=== PATIENT | male | born 1975 | race Caucasian/White ===

== ENCOUNTER 2021-07-10 04:08 | Emergency (ER) | payer OTHER ==
[~2021-07-10] VITALS: Ht 185.4 cm; Wt 102.5 kg
[2021-07-10] MEDS ORDERED: IV RINGERS SOLUTION,LACTATED 1,000 ML IV ONE (05:00)
[2021-07-10] MEDS ORDERED: KETOROLAC 30 MG/ML VIAL. IVP ONE (05:00)
[2021-07-10] MEDS ORDERED: ONDANSETRON PF 4 MG/2 ML VIAL. IVP ONE ×2 (05:00→05:30)
--- NOTE | 2021-07-10 05:19 | PHYS DOC ---
Past History Past Medical History: Kidney Stones Additional Past Medical Histor: Kidnet stent once. Past Surgical History: Other Additional Past Surgical Histo: right shoulder surgery. General Adult EDM: Chief Complaint: FLANK PAIN HPI: HPI: ".. I am having really bad flank pain.. It is probably another kidney stones I have had lots of kidney stones..... And had a stent before... had lithotripsy before ...this feels just like a kidney stone" Patient is a 45 year old male who presents with above hx and complaint of of left flank pain which he describes as his kidney stone pain. Patient states acute onset today. On left side radiates to his groin. No history of trauma. No specific ill contacts. No history of fever. Does have a past history of multiple stones some which required stent and one required lithotripsy. Patient states he is otherwise healthy. No recent travel. No specific ill contacts. Does have some nausea. No history immunosuppression. Follows at [place]. Has had some TDYs for . Review of Systems: Review of Systems: Constitutional: Denies fever or chills Eyes: Denies change in visual acuity HENT: Denies nasal congestion or sore throat Respiratory: Denies cough or shortness of breath Cardiovascular: Denies chest pain or edema GI: Planes of left flank abdominal pain, nausea,. Denies vomiting, bloody stools or diarrhea : Denies dysuria Musculoskeletal: Complains of left flank back pain or joint pain Integument: Denies rash Neurologic: Denies headache, focal weakness or sensory changes Endocrine: Denies polyuria or polydipsia Lymphatic: Denies swollen glands Psychiatric: Denies depression or anxiety Family History: Family History: Noncontributory to presentation Current Medications: Current Meds: Current Medications Medications (Trade) Dose Ordered Sig/Irwin Start Time Stop Time Status Last Admin Dose Admin Ketorolac Tromethamine (Toradol 30mg Vial) 30 mg 1X ONCE 07/10/21 05:00 07/10/21 05:01 DC 07/10/21 04:56 30 MG Lactated Ringer's 1,000 ml @ 1,000 mls/hr 1X ONCE 07/10/21 05:00 07/10/21 05:59 07/10/21 04:55 1,000 MLS/HR Ondansetron HCl (Zofran) 8 mg 1X ONCE 07/10/21 05:00 07/10/21 05:01 DC 07/10/21 04:58 8 MG Allergies: Allergies: Allergies Coded Allergies Type Severity Reaction Last Updated Verified No Known Drug Allergies 07/10/21 No Physical Exam: PE: Constitutional: Well developed, well nourished, in acute distress, non-toxic appearance. [] HENT: Normocephalic, atraumatic, bilateral external ears normal, oropharynx moist, no oral exudates, nose normal. [] Eyes: PERRLA, EOMI, conjunctiva normal, no discharge. [] Neck: Normal range of motion, no tenderness, supple, no stridor. [] Cardiovascular:Heart rate regular rhythm, no murmur [] Lungs & Thorax: Bilateral breath sounds clear to auscultation [] Abdomen: Bowel sounds decreased, soft, no tenderness, no masses, no pulsatile masses. Mild distention. Left flank tenderness on percussion Skin: Warm, dry, no erythema, no rash. [] Back: No tenderness, left-sided CVA tenderness. [] Extremities: No tenderness, no cyanosis, no clubbing, ROM intact, no edema. [] No psoas sign. Neurologic: Alert and oriented X 3, normal motor function, normal sensory function, no focal deficits noted. [] Psychologic: Affect anxious, judgement normal, mood normal. [] Current Patient Data: Vital Signs: Vital Signs Date Time Temp Pulse Resp B/P (MAP) Pulse Ox O2 Delivery O2 Flow Rate FiO2 07/10/21 04:23 97.8 63 22 100 Room Air EKG: EKG: [] Radiology/Procedures: Radiology/Procedures: [[address] [address] IMAGING REPORT Signed PATIENT: NEIL WHARTON NACCOUNT: [id number] : 1975 LOCATION: ER AGE: 45 SEX: M EXAM STATUS: REG ER ORD. PHYSICIAN: MEÑO LIANG MD REASON: Severe left flank pain hx kidney stones PROCEDURE: ACUTE ABDOMEN SERIES XR ABDOMEN COMP ACUTE History: Severe left flank pain and history of kidney stones. Comparison: None. Technique: Frontal chest with upright and supine radiographs of the abdomen and pelvis. Findings: Chest: Clear lungs. Normal cardiomediastinal silhouette. Bowel gas pattern: Normal. Free air: None. Abnormal calcifications: A 4 mm calcification is noted at the level of the L4-L5 disc space on the left consistent with nephroliths seen on comparison CT. Known right nephrolith is obscured by bowel gas. Bones: No acute findings. Other: None. Impression: 1. 4 mm calcification projecting at the left L4-L5 disc space consistent with ureterolith. Electronically signed by: Jacques Burnham MD (07/10/2021 6:02 AM) [facility] DICTATED AND SIGNED BY: JACQUES BURNHAM MD DATE: 07/10/21600 CC: MEÑO LIANG MD; PCP,UNKNOWN; BRUNO INGRAM DO ~ ][place] [address] IMAGING REPORT Signed PATIENT: NEIL WHARTON NACCOUNT: [id number] : 1975 LOCATION: ER AGE: 45 SEX: M EXAM STATUS: REG ER ORD. PHYSICIAN: MEÑO LIANG MD REASON: Severe left flank pain hx kidney stones PROCEDURE: CT ABDOMEN PELVIS WO CONTRAST CT ABDOMEN+PELVIS WO History: Severe left flank pain. History of kidney stones. Comparison: None. Technique: CT of the abdomen and pelvis without contrast. Findings: There is moderate left hydronephrosis and hydroureter with a 3 mm left mid to distal ureterolith. No left nephrolithiasis. Right nephrolithiasis with stone measuring up to 1 cm. No right hydronephrosis. Multiple indeterminate attenuation exophytic masses in the right kidney, largest measuring 3.3 cm diameter, 38 Hounsfield units attenuation. Dependent changes in the lung bases. Benign hepatic cyst. Large peripherally calcified 2.9 cm gallstone. No evidence of acute cholecystitis. The pancreas is unremarkable. Punctate calcifications in the spleen consistent with granulomatous disease. Normal adrenal glands. The stomach and small bowel are unremarkable. Normal appendix. The colon is unremarkable. No intra-abdominal free air or free fluid. The bladder and prostate are unremarkable. Unenhanced vasculature is within normal limits. Osseous structures and soft tissues are unremarkable. Impression: 1. Left mid to distal ureterolith measuring 3 mm causing moderate left hydronephroureter. 2. Multiple indeterminate exophytic masses in the right kidney, largest measuring 3.3 cm diameter. Findings may represent solid mass versus hemorrhagic or proteinaceous cyst. Recommend dedicated MRI or CT of the kidneys for further evaluation. 3. Nonobstructing right nephrolithiasis. 4. Cholelithiasis without evidence of acute cholecystitis. ------ Exposure: One or more of the following individualized dose reduction techniques were utilized for this examination: 1. Automated exposure control 2. Adjustment of the mA and/or kV according to patient size 3. Use of iterative reconstruction technique. Electronically signed by: Jacques Burnham MD (07/10/2021 6:01 AM) [facility] DICTATED AND SIGNED BY: JACQUES BURNHAM MD DATE: 07/10/21550 CC: MEÑO LIANG MD; PCP,UNKNOWN ~ [address] [address] IMAGING REPORT Signed PATIENT: NEIL WHARTON NACCOUNT: [id number] : 1975 LOCATION: ER AGE: 45 SEX: M EXAM STATUS: REG ER ORD. PHYSICIAN: MEÑO LIANG MD REASON: Severe left flank pain hx kidney stones PROCEDURE: CT ABDOMEN PELVIS WO CONTRAST CT ABDOMEN+PELVIS WO History: Severe left flank pain. History of kidney stones. Comparison: None. Technique: CT of the abdomen and pelvis without contrast. Findings: There is moderate left hydronephrosis and hydroureter with a 3 mm left mid to distal ureterolith. No left nephrolithiasis. Right nephrolithiasis with stone measuring up to 1 cm. No right hydronephrosis. Multiple indeterminate attenuation exophytic masses in the right kidney, largest measuring 3.3 cm diameter, 38 Hounsfield units attenuation. Dependent changes in the lung bases. Benign hepatic cyst. Large peripherally calcified 2.9 cm gallstone. No evidence of acute cholecystitis. The pancreas is unremarkable. Punctate calcifications in the spleen consistent with granulomatous disease. Normal adrenal glands. The stomach and small bowel are unremarkable. Normal appendix. The colon is unremarkable. No intra-abdominal free air or free fluid. The bladder and prostate are unremarkable. Unenhanced vasculature is within normal limits. Osseous structures and soft tissues are unremarkable. Impression: 1. Left mid to distal ureterolith measuring 3 mm causing moderate left hydronephroureter. 2. Multiple indeterminate exophytic masses in the right kidney, largest measuring 3.3 cm diameter. Findings may represent solid mass versus hemorrhagic or proteinaceous cyst. Recommend dedicated MRI or CT of the kidneys for further evaluation. 3. Nonobstructing right nephrolithiasis. 4. Cholelithiasis without evidence of acute cholecystitis. ------ Exposure: One or more of the following individualized dose reduction techniques were utilized for this examination: 1. Automated exposure control 2. Adjustment of the mA and/or kV according to patient size 3. Use of iterative reconstruction technique. Electronically signed by: Jacques Burnham MD (07/10/2021 6:01 AM) [facility] DICTATED AND SIGNED BY: JACQUES BURNHAM MD DATE: 07/10/21 0551 CC: MEÑO LIANG MD; PCP,UNKNOWN ~ Heart Score: C/O Chest Pain: N/A Risk Factors: Risk Factors: DM, Current or recent (<one month) smoker, HTN, HLP, family history of CAD, obesity. Risk Scores: Score 0 - 3: 2.5% MACE over next 6 weeks - Discharge Home Score 4 - 6: 20.3% MACE over next 6 weeks - Admit for Clinical Observation Score 7 - 10: 72.7% MACE over next 6 weeks - Early Invasive Strategies Course & Med Decision Making: Course & Med Decision Making Pertinent Labs and Imaging studies reviewed. (See chart for details) Patient save stone if passed. Patient push fluids. Patient to take Flomax 0.4 until stone passed. Take Zofran for active vomiting. Take Tylenol and ibuprofen for pain. For more pain may take Vicoprofen. Take Cipro 500 twice a day. Follow-up with primary and urology if you do not have urology consider follow-up with Dr. Giraldo. Impression: 1. Abdomen pain 2. Renal colic-distal 3 mm ureteral stone left-with hydroureter and nephrosis [] Dragon Disclaimer: Dragon Disclaimer: This electronic medical record was generated, in whole or in part, using a voice recognition dictation system. Departure Departure: Referrals: PCP,UNKNOWN (PCP) Scripts Tamsulosin Hcl (FLOMAX) 0.4 Mg Cap.er.24h 0.4 MG PO DAILY06 for renal colic, #30 CAP.SR Prov: MEÑO LIANG MD 07/10/21 Ondansetron Hcl (ONDANSETRON HCL) 4 Mg Tablet 8 MG PO QIDPRN PRN for NAUSEA/VOMITING, #30 TAB Prov: MEÑO LIANG MD 07/10/21 Dragon Disclaimer This chart was dictated in whole or in part using Voice Recognition software in a busy, high-work load, and often noisy Emergency Department environment. It may contain unintended and wholly unrecognized errors or omissions. MEÑO LIANG MD Jul 10, 2021 05:18
[2021-07-10] MEDS ORDERED: IV RINGERS SOLUTION,LACTATED 1,000 ML IV SCH (05:30)
[2021-07-10] MEDS ORDERED: TAMSULOSIN 0.4 MG CAP.ER.24H. PO ONE (05:30)
[2021-07-10] MEDS ORDERED: FAMOTIDINE 20 MG/2 ML VIAL IVP ONE (05:30)
[2021-07-10 05:36] LABS: BASO % 1 % (0-3); EOS # 0.2 x10^3/uL (0.0-0.7); EOS % 4 % (0-3); HEMATOCRIT 44.9 % (39.0-53.0); HEMOGLOBIN 15.6 g/dL (13.0-17.5); LYMPH # 1.7 x10^3/uL (1.0-4.8); LYMPH % 32 % (24-48); MEAN CORPUSCULAR HEMOGLOBIN 33 pg (25-35); MEAN CORPUSCULAR HGB CONC 35 g/dL (31-37); MEAN CORPUSCULAR VOLUME 96 fL (79-100); MONO # 0.4 x10^3/uL (0.0-1.1); MONO % 8 % (0-9); NEUT % 56 % (31-73); PLATELET COUNT 236 x10^3/uL (140-400); RED BLOOD COUNT 4.69 x10^6/uL (4.30-5.70); RED CELL DISTRIBUTION WIDTH 12.7 % (11.5-14.5); WHITE BLOOD COUNT 5.4 x10^3/uL (4.0-11.0)
[2021-07-10 05:44] LABS: CALCIUM 9.2 mg/dL (8.5-10.1); GFR 81.2; POTASSIUM 3.6 mmol/L (3.5-5.1)
[2021-07-10 05:50] LABS: ALBUMIN 4.3 g/dL (3.4-5.0); DIRECT BILIRUBIN 0.2 mg/dL (0.0-0.2); TOTAL BILIRUBIN 0.8 mg/dL (0.2-1.0); TOTAL PROTEIN 6.8 g/dL (6.4-8.2)
--- NOTE | 2021-07-10 06:03 | RAD ---
CT ABDOMEN+PELVIS WO History: Severe left flank pain. History of kidney stones. Comparison: None. Technique: CT of the abdomen and pelvis without contrast. Findings: There is moderate left hydronephrosis and hydroureter with a 3 mm left mid to distal ureterolith. No left nephrolithiasis. Right nephrolithiasis with stone measuring up to 1 cm. No right hydronephrosis. Multiple indeterminat e attenuation exophytic masses in the right kidney, largest measuring 3.3 cm diameter, 38 Hounsfield units attenuation. Dependent changes in the lung bases. Benign hepatic cyst. Large peripherally calcified 2.9 cm gallsto ne. No evidence of acute cholecystitis. The pancreas is unremarkable. Punctate calcifications in the spleen consistent with granulomatous disease. Normal adrenal glands. The stomach and small bowel are unremarkable. Normal appendix. The colon is unremarkable. No intra-ab dominal free air or free fluid. The bladder and prostate are unremarkable. Unenhanced vasculature is within normal limits. Osseous structures and soft tissues are unremarkable. Impression: 1. Left mid to distal ureterolith measuring 3 mm causing moderate left hydronephroureter. 2. Multiple indeterminate exophytic masses in the right kidney, largest measuring 3.3 cm diameter. F indings may represent solid mass versus hemorrhagic or proteinaceous cyst. Recommend dedicated MRI or CT of the kidneys for further evaluation. 3. Nonobstructing right nephrolithiasis. 4. Cholelithiasis without evidence of acute cholecystitis. ------ Exposure: One or more of the following individualized dose reduction techniques were utilized for thi s examination: 1. Automated exposure control 2. Adjustment of the mA and/or kV according to patient size 3. Use of iterative reconstruction technique. Electronically signed by: Jacques Gonzalez MD (07/10/2021 6:01 AM) [facility]
--- NOTE | 2021-07-10 06:05 | RAD ---
XR ABDOMEN COMP ACUTE History: Severe left flank pain and history of kidney stones. Comparison: None. Technique: Frontal chest with upright and supine radiographs of the abdomen and pelvis. Findings: Chest: Clear lungs. Normal cardiomediastinal silhouette. Bowel gas pattern: Normal. Free air: None. Abnormal calcifications: A 4 mm calcification is noted at the level of the L4-L5 disc space on the le ft consistent with nephroliths seen on comparison CT. Known right nephrolith is obscured by bowel gas . Bones: No acute findings. Other: None. Impression: 1. 4 mm calcification projecting at the left L4-L5 disc space consistent with ureterolith. Electronically signed by: Jacques Gonzalze MD (07/10/2021 6:02 AM) [facility]
[2021-07-10 06:20] LABS: BARBITURATES NEG (NEG); BENZODIAZEPINES NEG (NEG); CANNABINOIDS NEG (NEG); COCAINE NEG (NEG); METHADONE NEG (NEG); OPIATES NEG (NEG); PHENCYCLIDINE NEG (NEG)
[2021-07-10 06:22] LABS: AMPHETAMINE/METHAMPHETAMINE NEG (NEG)
[2021-07-10 06:25] LABS: CLARITY,URINE CLOUDY; COLOR,URINE YELLOW; GLUCOSE,URINE NEG (NEG); NITRITE,URINE NEG (NEG); RBC,URINE TNTC /HPF (0-2); UROBILINOGEN,URINE 0.2 mg/dL (0.2 mg/dL)
[2021-07-10 06:26] LABS: BACTERIA,URINE MOD /HPF (0-FEW); SQUAMOUS EPITHELIAL CELL,UR FEW /LPF
[2021-07-10] MEDS ORDERED: HYDR-1179 PO ×7 (06:37→07:14)
[2021-07-10] MEDS ORDERED: TAMS0.4C97 PO (06:37)
[2021-07-10] MEDS ORDERED: ONDA-84 PO (06:37)
[2021-07-10 07:27] VITALS: BP 139/84
== END 2021-07-10 07:27 | disposition home or self-care (01) ==
LOC: ER 04:08
DX: N13.2 Hydronephrosis with renal and ureteral calculous obstruction (principal); Z87.442 Personal history of urinary calculi
CPT/HCPCS: 36415; 74022; 74176; 80048; 80076; 80307; 81001; 82150; 82550; 83690; 85025; 85610; 85730; 87086; 96361; 96374; 96375; 99285; J1885; J2405; J3490; J7120